=== PATIENT | female | born 1960 | race African-American/Black ===

== ENCOUNTER 2017-01-21 16:04 | Emergency (ER) | payer MEDICAID ==
[~2017-01-21] VITALS: Ht 162.6 cm; Wt 91.0 kg
[~2017-01-21 16:04] MED LIST: IOHEXOL-300 100 ML BOTTLE ONE; SODIUM CHLORIDE 0.9% 10ML VIAL ONE
[2017-01-21] MEDS ORDERED: SODIUM CHLORIDE 0.9% 1,000 ML IV ONE (16:57)
[2017-01-21] MEDS ORDERED: PIPERACILLIN SODIUM/TAZOBACTAM 4.5 G in DEXT 5% WATER 100 ML IV SCH (17:00)
[2017-01-21] MEDS ORDERED: VANCOMYCIN 1,500 MG in DEXT 5% WATER 250 ML IV ONE (17:00)
[2017-01-21 17:33] LABS: BASOPHILS % 0.6 % (0.0-2.0); HEMATOCRIT. 38.3 % (36.0-48.0); HEMOGLOBIN. 12.9 g/dL (12.0-16.0); LYMPHOCYTES % 12.8 % (20.0-50.0); MEAN CORPUSCULAR HEMOGLOBIN 28.8 pg (28.0-32.0); MEAN CORPUSCULAR VOLUME 85.6 fL (81.0-99.0); MEAN PLATELET VOLUME 8.1 fl (7.4-10.4); MONOCYTES % 12.5 % (2.0-8.0); NEUTROPHILS % 73.1 % (40.0-76.0); PLATELET 313 x1000/uL (130-400); RED BLOOD CELL COUNT 4.48 mill/uL (4.2-5.4); RED CELL DISTRIBUTION WIDTH 13.7 % (11.6-14.6)
[2017-01-21 17:34] LABS: CHLORIDE 93 mEq/L (98-107)
[2017-01-21 17:38] LABS: CARBON DIOXIDE 33 mEq/L (21-32)
[2017-01-21 17:40] LABS: PROTHROMBIN TIME 10.5 sec
[2017-01-21] MEDS ORDERED: DEXAMETHASONE 10MG/ML 1ML VIAL IV ONE (18:00)
[2017-01-21] MEDS ORDERED: POTASSIUM CHLORIDE INJ 40 MEQ in DEXT 5% WATER 250 ML IV NR (18:30)
[2017-01-21 19:30] VITALS: BP 150/95
[2017-01-21] MEDS ORDERED: KETAMINE HCL 50 MG/ML 10ML IV ONE (19:45)
== END 2017-01-21 20:48 | disposition left against medical advice (07) ==
LOC: ER 16:55 → CANBEDREQ 21:06
DX: J39.2 Other diseases of pharynx (principal); R22.1 Localized swelling, mass and lump, neck
CPT/HCPCS: 36415; 70491; 71010; 80053; 83605; 85025; 85610; 87040; 93005; 96361; 96365; 96367; 96375; 99291; A4216; J1100; J2543; J3370; J3480; J7030; Q9967; Z7610; J7060